=== PATIENT | male | born 1965 | race Caucasian/White ===

== ENCOUNTER 2016-05-14 09:20 | Emergency (ER) | payer MEDICARE, OTHER ==
[~2016-05-14] VITALS: Ht 182.9 cm; Wt 89.0 kg
[2016-05-14] MEDS ORDERED: LORAZEPAM 1MG TABLET PO ONE (09:45)
[2016-05-14 10:05] LABS: BASOPHILS % 0.2 % (0.0-2.0); EOSINOPHILS % 1.1 % (0.0-5.0); HEMATOCRIT. 45.9 % (42.0-52.0); HEMOGLOBIN. 15.7 g/dL (14.0-18.0); LYMPHOCYTES % 9.6 % (20.0-50.0); MEAN CORPUSCULAR HEMOGLOBIN 29.6 pg (28.0-32.0); MEAN CORPUSCULAR HGB CONC 34.2 g/dL (31.0-37.0); MEAN CORPUSCULAR VOLUME 86.7 fL (80.0-94.0); MEAN PLATELET VOLUME 9.1 fl (7.4-10.4); MONOCYTES % 8.2 % (2.0-8.0); NEUTROPHILS % 80.9 % (40.0-76.0); PLATELET 155 x1000/uL (130-400); RED BLOOD CELL COUNT 5.29 mill/uL (4.7-6.1); RED CELL DISTRIBUTION WIDTH 13.5 % (11.6-14.6)
[2016-05-14 10:18] LABS: ACETAMINOPHEN < 2 ug/mL (10-30); ANION GAP 12; CALCIUM 8.2 mg/dL (8.5-10.1); CARBON DIOXIDE 29 mEq/L (21-32); CHLORIDE 108 mEq/L (98-107); ETHANOL BLOOD < 10 mg/dL; INDEX HEMOLYSI 1 (1-3); INDEX ICTERIC 1 (1-4); INDEX LIPEMIC 1 (1-3); UREA NITROGEN BLOOD 10 mg/dL (7-21); eGFR 58 mL/min (>60)
[2016-05-14] MEDS ORDERED: OLANZAPINE 10 MG/VIAL IM ONE (10:30)
[2016-05-14 12:12] LABS: *AMPHETAMINES SCREEN URINE NEGATIVE (NEGATIVE); *BARBITURATES SCREEN URINE NEGATIVE (NEGATIVE); *BENZODIAZEPINES SCREEN URINE NEGATIVE (NEGATIVE); *COCAINE SCREEN URINE NEGATIVE (NEGATIVE); CANNABINOID URINE SCREEN NEGATIVE (NEGATIVE); ECSTASY MDMA SCREEN URINE NEGATIVE (NEGATIVE); METHADONE URINE SCREEN NEGATIVE (NEGATIVE); OPIATES URINE SCREEN NEGATIVE (NEGATIVE); PHENCYCLIDINE URINE SCREEN NEGATIVE (NEGATIVE)
[2016-05-14] MEDS ORDERED: OLANZAPINE 10MG TABLET PO ONE (17:30)
[2016-05-14] MEDS ORDERED: CLONIDINE 0.1MG TABLET PO ONE (20:30)
[2016-05-14 20:39] VITALS: BP 140/85
== END 2016-05-14 21:20 | disposition home or self-care (01) ==
LOC: ER 09:37
DX: I10 Essential (primary) hypertension (principal); Q89.9 Congenital malformation, unspecified
CPT/HCPCS: 36415; 80048; 80302; 80305; 80329; 85025; 96372; 99284; G0482; J3490

== ENCOUNTER 2016-09-12 08:08 | Emergency (ER) | payer MEDICARE ==
[~2016-09-12] VITALS: Ht 180.3 cm; Wt 85.0 kg
[2016-09-12 08:13] VITALS: BP 140/94
== END 2016-09-12 10:19 | disposition home or self-care (01) ==
LOC: ER 08:22
DX: B35.3 Tinea pedis (principal); B35.1 Tinea unguium; I10 Essential (primary) hypertension; F84.0 Autistic disorder
CPT/HCPCS: 99283

== ENCOUNTER 2017-01-21 07:34 | Emergency (ER) | payer MEDICARE ==
[~2017-01-21] VITALS: Ht 185.4 cm; Wt 90.0 kg
[2017-01-21 07:56] LABS: CLARITY URINE CLEAR (CLEAR); COLOR URINE YELLOW (YELLOW); KETONES URINE NEGATIVE (NEGATIVE); LEUKOCYTE ESTERASE URINE TRACE (NEGATIVE); NITRITE URINE NEGATIVE (NEGATIVE); OCCULT BLOOD URINE NEGATIVE (NEGATIVE); PROTEIN URINE NEGATIVE (NEGATIVE); SPECIFIC GRAVITY URINE 1.018 (1.005-1.030); UROBILINOGEN URINE 0.2 E.U./dL (0.2-1.0)
[2017-01-21] MEDS ORDERED: LORAZEPAM 2MG/ML CPJ IM ONE (08:00)
[2017-01-21 08:14] LABS: BASOPHILS % 0.3 % (0.0-2.0); EOSINOPHILS % 1.4 % (0.0-5.0); HEMATOCRIT. 49.8 % (42.0-52.0); HEMOGLOBIN. 17.2 g/dL (14.0-18.0); LYMPHOCYTES % 11.4 % (20.0-50.0); MEAN CORPUSCULAR HEMOGLOBIN 30.5 pg (28.0-32.0); MEAN CORPUSCULAR VOLUME 88.6 fL (80.0-94.0); MONOCYTES % 7.5 % (2.0-8.0); NEUTROPHILS % 79.4 % (40.0-76.0); RED BLOOD CELL COUNT 5.63 mill/uL (4.7-6.1); RED CELL DISTRIBUTION WIDTH 13.2 % (11.6-14.6)
[2017-01-21 08:23] LABS: CARBON DIOXIDE 27 mEq/L (21-32); CHLORIDE 106 mEq/L (98-107); ETHANOL BLOOD < 10 mg/dL
[2017-01-21 09:00] LABS: PLATELET 183 x1000/uL (130-400)
[2017-01-21 09:15] LABS: *AMPHETAMINES SCREEN URINE NEGATIVE (NEGATIVE); *BARBITURATES SCREEN URINE NEGATIVE (NEGATIVE); *BENZODIAZEPINES SCREEN URINE NEGATIVE (NEGATIVE); *COCAINE SCREEN URINE NEGATIVE (NEGATIVE); CANNABINOID URINE SCREEN NEGATIVE (NEGATIVE); METHADONE URINE SCREEN NEGATIVE (NEGATIVE); OPIATES URINE SCREEN NEGATIVE (NEGATIVE); PHENCYCLIDINE URINE SCREEN NEGATIVE (NEGATIVE)
[2017-01-21 11:16] VITALS: BP 114/77
== END 2017-01-21 12:00 | disposition home or self-care (01) ==
LOC: ER 07:44
DX: S42.402A Unspecified fracture of lower end of left humerus, initial encounter for closed fracture (principal); I10 Essential (primary) hypertension; F79 Unspecified intellectual disabilities; Y04.2XXA Assault by strike against or bumped into by another person, initial encounter; Y93.89 Activity, other specified; Y92.89 Other specified places as the place of occurrence of the external cause; Y99.8 Other external cause status
CPT/HCPCS: 29105; 36415; 73060; 80053; 80305; 81001; 85025; 96372; 99285; G0482; J2060; A4565

== ENCOUNTER 2017-01-24 16:02 | Emergency (ER) | payer MEDICARE ==
[~2017-01-24] VITALS: Ht 182.9 cm; Wt 93.0 kg
[2017-01-24] MEDS ORDERED: BACITRACIN ZINC OINT UDPKT TOP ONE (18:30)
[2017-01-24] MEDS ORDERED: LIDOCAINE/EPINEPHR/TETRACAINE 3ML TP ONE (19:00)
[2017-01-24] MEDS ORDERED: TETANUS, DIPHTHERIA, PERTUSSIS VAC/PF 0.5ML (>7YR OLD) IM ONE (19:00)
[2017-01-24] MEDS ORDERED: LIDOCAINE HCL 1% 20ML VIAL (Pyxis) INJ MC ONE (19:45)
[2017-01-24 21:14] VITALS: BP 133/90
== END 2017-01-24 21:16 | disposition home or self-care (01) ==
LOC: ER 16:11
DX: S51.012A Laceration without foreign body of left elbow, initial encounter (principal); X58.XXXA Exposure to other specified factors, initial encounter; Y93.9 Activity, unspecified; Y92.9 Unspecified place or not applicable; Z23 Encounter for immunization; I10 Essential (primary) hypertension
CPT/HCPCS: 12001; 73070; 99284; J3490; 90715; A4565

== ENCOUNTER 2022-11-10 12:26 | Emergency (ER) | payer MEDICARE, MEDICAID ==
[~2022-11-10] VITALS: Ht 180.3 cm; Wt 73.0 kg
[2022-11-10 12:28] VITALS: BP_DIAS 72
[2022-11-10 12:29] VITALS: BP_SYST 80; PULSE 154; RESP 20; TEMP 98; O2SAT 92
[2022-11-10] MEDS ORDERED: MORPHINE SULFATE 4 MG/ML CPJ (NOT FOR IM USE) IV STA (12:35)
[2022-11-10] MEDS ORDERED: ONDANSETRON HCL 4MG/2ML INJ IV STA (12:35)
[2022-11-10] MEDS ORDERED: DILTIAZEM HCL 5MG/ML 5ML VIAL IV ONE (12:45)
[2022-11-10] MEDS ORDERED: SODIUM CHLORIDE 0.9% 1,000 ML IV ONE (12:45)
== END 2022-11-10 12:54 ==
LOC: ER 12:26
DX: I46.9 Cardiac arrest, cause unspecified (principal); I48.91 Unspecified atrial fibrillation; I10 Essential (primary) hypertension; Z98.890 Other specified postprocedural states
CPT/HCPCS: 93005; 31500 ×2; 92950; 99291; J7030